=== PATIENT | female | born 1960 | race Caucasian/White ===

== ENCOUNTER 2016-11-28 06:35 | Emergency (ER) | payer BC ==
[~2016-11-28] VITALS: Ht 162.6 cm; Wt 52.0 kg
[~2016-11-28 06:35] MED LIST: HYDR-762 PO; IBUP800T25 PO
[2016-11-28 06:39] VITALS: Ht 162.6 cm; Wt 52.0 kg
[2016-11-28] MEDS ORDERED: METOCLOPRAMIDE 10 MG INJ IV STA (07:11)
[2016-11-28] MEDS ORDERED: DIPHENHYDRAMINE 50 MG INJ IV STA (07:11)
[2016-11-28] MEDS ORDERED: SOD CHLORIDE 0.9% 1,000 ML IV STA (07:11)
[2016-11-28] MEDS ORDERED: KETOROLAC 30 MG INJ IV STA (07:11)
[2016-11-28 07:42] LABS: URINE BLOOD (Dip) POC Negative (NEGATIVE)
--- NOTE | 2016-11-28 07:54 | RADRPT ---
PROCEDURE: CT Brain without. CLINICAL INDICATION: Headache TECHNIQUE: A CT of the brain was performed utilizing axial sections from the skull base through th e vertex without contrast. The scan was reviewed in soft tissue brain and high frequency resolution bone algorithm windows. Images were reviewed on a high-resolution PACS workstation. The exam CTDI = 45.01 mGy, and the DLP = 630.20 mGy-cm. COMPARISON: None available FINDINGS: The ventricles are normal in size and midline in position. There is no intracranial hemorrhage, mid line shift, or mass effect. No abnormal extra-axial fluid collections are identified. The cook-whi te differentiation is well preserved. The basal cisterns are patent. The posterior fossa is unrema rkable. The visualized portions of the orbits are unremarkable. The paranasal sinuses and mastoid air cells are clear. No calvarial fracture or abnormality are identified. The soft tissues are unremarkable . IMPRESSION: Unremarkable CT of the brain. RPTAT: HH .Gricel Thomas MD, MD Date Time Electronically viewed and signed by .Gricel Thomas MD, on 11/28/2016 07:53 .G/
[2016-11-28] MEDS ORDERED: FIORICET PO (08:21)
[2016-11-28 08:31] VITALS: PULSE 85
--- NOTE | 2016-11-28 09:51 | ERD ---
DATE OF SERVICE: HISTORY OF PRESENT ILLNESS: A 56-year-old female coming in complaining of a headache for over a mon . She states that she has had surgery done a month ago on her lumbar L5; she had a fusion. She s tates that she has been taking strong narcotic medications over the last year; however, she has been trying to wean herself off of the narcotic medications. She has been seen by multiple people regar ding her headaches. They are unsure if it is caused by previous narcotic dependency versus post-gema gical. The denies any vomiting. Denies vision changes. She states the pain has been slowly improving, but has been persistent and she was told to come to the ER. The patient has been taking Aleve and Tylenol with no alleviation of symptoms. MEDICAL PROBLEMS: Denies. ALLERGIES 1. CIPRO. 2. CECLOR. SURGICAL HISTORY: Back surgery, appendectomy and tubal ligation. SOCIAL HISTORY: Denies. REVIEW OF SYSTEMS: A 12-point review of systems was done. Refer to HPI for positives, all other sy stems negative. PHYSICAL EXAMINATION VITAL SIGNS: Temperature 98, pulse 118, blood pressure is 132/79, respiratory rate 18, O2 saturatio n 100% on room air. GENERAL: The patient is well-appearing, well-nourished, in no acute distress. PHYSICAL EXAMINATION HEENT: Atraumatic. Conjunctivae are pink. Pupils equal, round, and reactive to light. There is no s cleral icterus. Tympanic membranes clear bilaterally. Oropharynx clear. No nystagmus or photophobia . NECK: C-spine is soft and supple. There is no meningismus. There is no cervical lymphadenopathy. No JVD. No bruits. No goiter. CHEST: Clear to auscultation bilaterally. There are no rales, wheezes or rhonchi. HEART: Regular rate and rhythm. No murmurs, clicks, rubs or gallops. No S3 or S4. NEURO: Alert and oriented. Cranial nerves 2-12 intact. Motor strength in all 4 extremities with 5/5 strength. Sensation grossly intact. Normal speech and gait. Babinski negative. DTR 2+ throughout. EMERGENCY ROOM COURSE: The patient was given a liter of normal saline in the ER with Toradol, Benad ryl and Reglan. The patient also had a brain CT done; the brain CT showed unremarkable CT of the br ain. Upon reevaluation, the patient's symptoms had dramatically improved. Her vitals were reassess ed. Her pulse rate had dropped from 118 to 85 and pain intensity had improved from 10 to 2. DIAGNOSIS: Headache. MEDICAL DECISION MAKING: I have low suspicion for intracranial hemorrhage or mass effect. Low susp icion for neuro deficit, low suspicion for meningitis or sepsis. Patient's exam was within normal l imits. The patient is nontoxic appearing and symptoms improved with medication. CT scan was normal . DISCHARGE: The patient is discharged stable. Patient was given prescription for Fioricet and told to follow up with primary care within 1 to 2 days for reevaluation. The patient was told if symptom s progress or worsen to return to the ER. All other questions answered at time of discharge. Disch arge summary given at the time of departure. Patient understood and complied with plan. Dictated By: KENAN RUDOLPH for GIFTY LAKHANI/EDEL Conf#: [id number] DID#: [id number]
== END 2016-11-28 08:31 | disposition home or self-care (01) ==
LOC: FTE 06:35
DX: R51 Headache (principal)
CPT/HCPCS: 70450; 81003; 96374; 96375; 99285; J1200; J1885; J2765; J7030

== ENCOUNTER → 2018-11-09 | Outpatient (CLI) | END | disposition home or self-care (01) ==